=== PATIENT | male | born 1945 | race Caucasian/White ===

== ENCOUNTER 2022-04-30 08:03 | Outpatient (CLI) | payer BC ==
[~2022-04-30] VITALS: Ht 180.3 cm; Wt 81.6 kg
[2022-04-30 08:29] LABS: INR 1.1 (0.80-1.20)
[2022-04-30] MEDS ORDERED: MIDAZOLAM HCL 5 MG/5 ML VIAL ONE (09:30)
[2022-04-30] MEDS ORDERED: LIDOCAINE 1%, 20 ML MDV 0 ML ONE (09:43)
== END 2022-04-30 18:00 | disposition home or self-care (01) ==
LOC: SMU 08:03 → SUS 08:03 → SDS 08:03 → EDSTATUS 09:00 → SUS 18:00
PROVIDERS: ATTEND Specialist
DX: K76.89 Other specified diseases of liver (principal); D37.6 Neoplasm of uncertain behavior of liver, gallbladder and bile ducts; C22.7 Other specified carcinomas of liver; Z20.822 Contact with and (suspected) exposure to COVID-19
CPT/HCPCS: 36415 ×2; 47000; 85610; 85730; 77012; 88307; 88313; 88341; 88342; U0003; J2250; 76376; J2001